=== PATIENT | female | born 1970 | race Hispanic/Latino ===

== ENCOUNTER 2017-04-27 15:03 | Emergency (ER) | payer OTHER ==
[~2017-04-27] VITALS: Ht 157.5 cm; Wt 63.5 kg
[2017-04-27 15:36] VITALS: TEMP 99.2
[2017-04-27] MEDS ORDERED: NIFE60TA5 PO (15:40)
[2017-04-27] MEDS ORDERED: METO50TA27 PO (15:40)
[2017-04-27 15:49] LABS: PLATELET COUNT 303 K/uL (152-353)
[2017-04-27 16:37] VITALS: BP 122/60
== END 2017-04-27 16:37 | disposition home or self-care (01) ==
LOC: ED 15:03
DX: N30.00 Acute cystitis without hematuria (principal)
CPT/HCPCS: 81000; 81025; 85027; 99283

== ENCOUNTER 2020-03-05 20:32 | Emergency (ER) | payer OTHER ==
[~2020-03-05] VITALS: Ht 152.4 cm; Wt 68.0 kg
[~2020-03-05 20:32] MED LIST: METO50TA27 PO; NIFE60TA5 PO
[2020-03-05 21:19] LABS: PLATELET COUNT 306 K/uL (152-353)
[2020-03-05 21:31] LABS: POTASSIUM 4.2 mmol/L (3.6-5.2)
[2020-03-05 23:03] VITALS: BP 128/80; TEMP 98.6
== END 2020-03-05 23:03 | disposition home or self-care (01) ==
LOC: ED 20:32
PROVIDERS: Hospitalist
DX: D25.9 Leiomyoma of uterus, unspecified (principal); N30.80 Other cystitis without hematuria; N83.292 Other ovarian cyst, left side
CPT/HCPCS: 36415; 80053; 81000; 81025; 82150; 83690; 85027; 96360; 96365; 96375; 99284; J0696; J1170; J1885; J2405; Q9963

== ENCOUNTER 2020-09-24 07:32 | Emergency (ER) | payer OTHER ==
[~2020-09-24] VITALS: Ht 152.4 cm; Wt 68.5 kg
[2020-09-24 07:39] VITALS: TEMP 98.5
[2020-09-24 09:26] VITALS: BP 128/78
== END 2020-09-24 09:26 | disposition home or self-care (01) ==
LOC: ED 07:32
DX: N39.0 Urinary tract infection, site not specified (principal)
CPT/HCPCS: 81000; 99282

== ENCOUNTER 2021-05-03 14:05 | Emergency (ER) | payer OTHER ==
[2021-05-13 12:54] LABS: PLATELET COUNT 438 K/uL (152-353)
[2021-05-13 12:55] LABS: PARTIAL THROMBOPLASTIN TIME 25.2 SECONDS (24.5-33.6); POTASSIUM 3.5 mmol/L (3.6-5.2); SODIUM 142 mmol/L (136-145)
== END 2021-05-03 17:25 | disposition home or self-care (01) ==
LOC: ED 14:05
PROVIDERS: Emergency Medicine
DX: R00.2 Palpitations (principal); F41.1 Generalized anxiety disorder
CPT/HCPCS: 80053; 80307; 81000; 82550; 82553; 83880; 84484; 85027; 85610; 85730; 93005; 99283

== ENCOUNTER 2023-03-26 05:59 | Emergency (ER) | payer OTHER ==
[~2023-03-26] VITALS: Ht 152.4 cm; Wt 65.8 kg
[2023-03-26 06:10] VITALS: TEMP 98.2
[2023-03-26 06:50] LABS: PLATELET COUNT 341 K/uL (152-353)
[2023-03-26 06:57] LABS: POTASSIUM 3.9 mmol/L (3.6-5.2)
[2023-03-26 07:51] VITALS: BP 128/71
== END 2023-03-26 07:55 | disposition home or self-care (01) ==
LOC: ED 05:59
PROVIDERS: Emergency Medicine
DX: R10.31 Right lower quadrant pain (principal); D25.9 Leiomyoma of uterus, unspecified
CPT/HCPCS: 36415; 80053; 81002; 81025; 85027; 96360; 99284; Q9963